=== PATIENT | male | born 1955 | race Caucasian/White ===

== ENCOUNTER → 2017-10-25 | Outpatient (CLI) | payer OTHER ==
--- NOTE | 2017-10-25 13:01 | RAD ---
EXAM: Abdomen sonogram. HISTORY: Ascites. TECHNIQUE: Sonographic imaging of the abdomen was performed and a site overlying ascites fluid collection was marked for anticipated paracentesis. COMPARISON: None. FINDINGS: There is a moderate amount of ascites. A site overlying the right lower quadrant was marked for anticipated thoracentesis. IMPRESSION: Moderate abdominal ascites. Electronically signed by: Lavinia Baugh MD (10/25/2017 12:57 PM) [place] [id number]
== END | disposition home or self-care (01) ==
LOC: US 12:18
PROVIDERS: ATTEND Nurse Practitioner Adult Health
DX: R18.8 Other ascites (principal)
CPT/HCPCS: 76705